=== PATIENT | female | born 1955 | race Caucasian/White ===

== ENCOUNTER 2019-08-18 16:04 | Emergency (ER) | payer BC ==
[~2019-08-18] VITALS: Ht 162.6 cm; Wt 62.6 kg
[2019-08-18] MEDS ORDERED: FLONASE 0.05%50 MCG NARES (16:21)
[2019-08-18] MEDS ORDERED: CLARITIN10 M3 PO (16:21)
[2019-08-18] MEDS ORDERED: ZPAK PO (16:26)
[2019-08-18 16:33] VITALS: BP 142/63
== END 2019-08-18 16:34 | disposition home or self-care (01) ==
LOC: M.ERS 16:04
DX: H66.92 Otitis media, unspecified, left ear (principal); Z90.13 Acquired absence of bilateral breasts and nipples; Z88.0 Allergy status to penicillin